=== PATIENT | male | born 1945 | race Caucasian/White ===

== ENCOUNTER → 2016-11-23 | Day surgery (SDC) | payer OTHER ==
[~2016-11-23] MED LIST: ALLO100T PO; AMIO100T4 PO; ASPI81TA44 PO; ATOR10TA60 PO; CLOP75TA PO; DIGO125T PO; FENTANYL PF 100 MCG/2 ML VIAL. IV PRN; FURO20TA3 PO; GABA-586 PO; HYDROMORPHONE 2 MG/ML VIAL. IV PRN; IV RINGERS,LACTATED 1000ML 1,000 ML IV SCH; LIDOCAINE 1% 1 ML SYRINGE. ID PRN; METF-550 PO; METO50TA10 PO; MORPHINE SULFATE 2 MG/ML DISP.SYRIN. IV PRN; ONDANSETRON PF 4 MG/2 ML VIAL. IV PRN; PROCHLORPERAZINE 10 MG/2 ML VIAL. IV PRN; PROPOFOL 0 ML IV ONE; PROPOFOL 20 ML IV ONE; SACU1TAB PO; SPIR25TA3 PO
--- NOTE | 2016-11-23 08:50 | PDOC ---
BRIEF OPERATIVE NOTE Date: Nov 23, 2016 Pre-Op Diagnosis Rectal polyp Post-Op Diagnosis Rectal polyp at 8cm Procedure Performed Flex sig with Snare removal of polyp Surgeon Wayne Anesthesia Type: MAC Blood Loss 10ml Specimens Obtained Rectal polyp Findings as above Complications None RICHI SOLORZANO MD Nov 23, 2016 08:50
--- NOTE | 2016-11-23 08:50 | DISCH ---
DISCHARGE INSTRUCTIONS Condition on Discharge Condition on Discharge: Stable Activity After Discharge Activity Instructions for Disc: No restrictions Diet after Discharge Diet after Discharge: Regular Contacting the DR. after DC Call your doctor for: If your condition worsens Follow-Up Follow up with: Dr Solorzano in 7 to 10 days RICHI SOLORZANO MD Nov 23, 2016 08:50
[2016-11-23 08:56] VITALS: BP 121/67
--- NOTE | 2016-11-23 10:06 | OP ---
DATE OF SURGERY: 11/23/2016 PREOPERATIVE DIAGNOSIS: Rectal polyp with dysplasia. POSTOPERATIVE DIAGNOSIS: Rectal polyp with dysplasia. PROCEDURE: Flexible sigmoidoscopy with snare removal of rectal polyp. SURGEON: Brant Solorzano MD INDICATIONS: This is a 71-year-old gentleman with multiple comorbidities of heart disease, pulmonary disease, on anticoagulation. Procedure of flexible sigmoidoscopy with polyp removal was explained to the patient in detail. Risks and benefits were also discussed including bleeding and/or perforation of the GI tract. Alternatives of this procedure were also discussed with the patient who seemed to understand and gave verbal and written consent to have the procedure performed. DESCRIPTION OF PROCEDURE: The patient was taken to the GI lab, placed in the left lateral decubitus position. IV sedation was initiated by anesthesia. Once the patient was appropriately sedated, digital rectal exam was performed, which showed no mass or obstruction of the rectum. At this point, an Olympus colonoscope was passed via the anus into the rectum. Polyp was noted at 8 cm from the anal verge. It was fairly broad based. The snare was used multiple times to remove a large portion of the polyp. In fact, it appeared to be completely removed with multiple snare biopsies. Several pieces of the polyp were sent for pathology. There was some mucosal bleeding. Two clips were applied, which essentially stopped the bleeding. The rectum was irrigated and suctioned. No further bleeding was noted. The patient was awakened from his sedation, tolerated the procedure well without any difficulties. ASSESSMENT: Rectal polyps at 8 cm. The patient may restart his anticoagulation in 24 hours and follow up with Dr. Solorzano in 7-10 days to review pathology reports. BRANT SOLORZANO MD DR: REBECA/fredy JOB#: [id number] / [id number]
--- NOTE | 2016-11-24 16:06 | PATHOLOGY ---
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 SEE COMMENT. COMMENT: Sections of the rectal polyp at 8 cm reveal multiple segments of tubulovillous adenoma showing focal high grade dysplasia. In addition, there are focal areas within the polyp which show malignant glands irregularly infiltrating a reactive desmoplastic stroma. The largest of these areas measures 1 cm in greatest dimension. Since the polyp is received in multiple fragments, we cannot determine the depth of invasion or whether or not the base of the polyp is involved by tumor. The case is also examined by Dr. Gray, who concurs with the diagnosis. (JPM:all; d/t: 11/23/2016) REPORT ELECTRONICALLY SIGNED BY: Albin Harman M.D. DATE/TIME: 11/24/2016 16:05 * * * * * * * * GROSS PATHOLOGY: The specimen is received in formalin labeled "Ramo Elizabeth, rectal polyp at 8 cm". Received are multiple segments of pink-james soft tissue ranging in size from 1.5 x 1.1 x 0.9 to 1.6 x 1.4 x 1.2 cm in greatest dimensions. The surgical margins cannot be grossly identified. Each segment is sectioned respectively and the specimen is entirely submitted in cassettes B1 through B8. (CAA; 11/23/2016) INITIAL CPT CODE(S): A; 97013 Professional services performed by [facility] at [address] [address] Technical services performed by [facility] at [address] [place] [address], [facility] [address] [address]. Dr. Connie Barrera, [facility] SPECIMEN(S) RECEIVED: A.Rectal polyp at 8cm CLINICAL HISTORY: Colon mass PATIENT: RAMO ELIZABETH /AGE: 907/19/1945 (Age: 71) PATIENT #: [id number] ALT CASE #: SPECIMEN COLLECTION DATE: 11/23/2016 SPECIMEN RECEIVED DATE: 11/23/2016 [facility] - [address] [place] [address] - PHONE: [phone] * * * END OF REPORT * * *
== END ==
LOC: SURG 07:07
PROVIDERS: ATTEND Surgery
DX: K62.1 Rectal polyp (principal); E78.00 Pure hypercholesterolemia, unspecified; I10 Essential (primary) hypertension; M19.90 Unspecified osteoarthritis, unspecified site; E11.9 Type 2 diabetes mellitus without complications; Z72.89 Other problems related to lifestyle; F17.200 Nicotine dependence, unspecified, uncomplicated
CPT/HCPCS: 45385; 88305; J2704